=== PATIENT | male | born 1980 | race Caucasian/White ===

== ENCOUNTER 2024-02-04 23:44 | Inpatient (IN) | payer SELFPAY ==
[2024-02-04 23:45] VITALS: BP 137/113; PULSE 82; RESP 18; TEMP 36.8; O2SAT 99
[2024-02-04 23:47] VITALS: BMI 24.9
--- NOTE | 2024-02-04 23:55 | EX.ED.SAOD ---
HPI History of Present Illness Chief Complaint: ETOH Intox Narrative Narrative: 43-year-old male presenting for alcohol. Last drink was just a few hours ago. Patient states he gets up in the morning and drinks all day. He drinks mostly beer but also drinks whiskey. He has been doing this for about 15 years. He is never detoxed before. He does not know if he will withdrawal or not. Patient denies any other medical problems. He states he does not do drugs. PFSH PFSH Allergy/AdvReac Type Severity Reaction Status Date / Time No Known Allergies Allergy Verified 02/04/24 23:48 ROS ROS ED Constitutional Constitutional ED: Denies chills, fever(s) or sweats Eyes Eyes: Denies blurry vision or change in vision ENT ENT ED: Denies ear pain or sore throat Cardiovascular Cardiovascular: Denies chest pain, palpitations or racing heartbeat Respiratory/Chest Respiratory/Chest: Denies cough, dyspnea or sputum Gastrointestinal Gastrointestinal: Denies abdominal pain, constipation, diarrhea, nausea or vomiting Genitourinary Genitourinary ED: Denies dysuria, hematuria or urinary frequency Musculoskeletal Musculoskeletal: Denies arthralgias, myalgias or neck pain Integumentary Denies abscess, Abrasions or rash Neurologic Neurologic: Denies headache(s), paresthesias or weakness Psychiatric Psychiatric: Denies anxiety, depression, suicidal ideation or suicidal thoughts Endocrine Endocrinology: Denies polydipsia or polyuria EXAM Physical Exam Const Vital Signs: 02/04/24 23:45 Temperature 98.3 F Temperature Source Oral Pulse Rate 82 Respiratory Rate 18 Blood Pressure 137/113 H Blood Pressure Mean 121 Pulse Ox 99 Oxygen Delivery Method Room Air Positive well nourished General Appearance ED: NAD; Negative for pallor HEENT Reports moist mucous membranes Eyes PERRL and EOMs intact bilaterally Lymph Lymphatic: no lymphadenopathy noted Resp normal respiratory effort and clear to auscultation bilaterally Auscultation: Negative for rales, rhonchi or wheezes Cardio regular rate and regular rhythm Neuro oriented x3 and CN's II-XII intact bilaterally Sensorium / Orientation: alert Motor Exam: strength 5/5 throughout Psych mental status grossly normal Skin General Skin Exam: Negative for jaundice or pallor MDM MDM MDM Narrative Medical decision making narrative: Patient presenting for EtOH detox. Appropriate screening lab work was obtained. Assess white blood cell count, hemoglobin, platelets. CMP to assess liver for, renal. Alcohol level use assess intoxication. Urine drug screen will be obtained. Patient not currently having any withdrawal symptoms. CBC shows normal white blood cell count of 6.6. Hemoglobin 15.0. Platelets are normal at 240. Renal function and electrolytes within normal limits with exception of a potassium 3.2. AST and ALT moderately elevated at 76 and 87 respectively. EtOH 153. Urine drug screen is pending. Patient mid to the hospitalist in stable condition. Impression: 1. EtOH abuse 2. EtOH detox Lab Data Attestation: I reviewed the patient's lab results. Labs: Laboratory Results - last 24 hr 02/05/24 02/05/24 00:20 00:25 WBC 6.6 RBC 4.54 L Hgb 15.0 Hct 44.7 MCV 98.5 H MCH 33.0 H MCHC 33.6 RDW Std Deviation 47.3 H RDW Coeff of Filippo 13.2 Plt Count 240 MPV 9.2 Immature Gran % (Auto) 0.300 Neut % (Auto) 68.6 Lymph % (Auto) 17.[address] [place] % (Auto) 10.0 Eos % (Auto) 3.2 Baso % (Auto) 0.9 Absolute Neuts (auto) 4.6 Absolute Lymphs (auto) 1.13 Nucleated RBC % 0 Sodium 139 Potassium 3.2 L Chloride 105 Carbon Dioxide 25.0 Anion Gap 9 BUN 7 Creatinine 0.90 Est GFR (MDRD) Af Amer 120 Est GFR (MDRD) Non-Af 99 BUN/Creatinine Ratio 7.8 L Glucose 94 Calcium 8.9 Total Bilirubin 0.60 AST 76 H ALT 87 H Alkaline Phosphatase 52 Total Protein 7.9 Albumin 4.3 Globulin 3.6 Albumin/Globulin Ratio 1.2 Ur Drug Screen Comment Ethyl Alcohol 153.0 Discharge Plan Triage Chief Complaint: ETOH Intox ED Provider: Cyrus Raymundo Dx/Rx/DC Orders Print Language: Occitan
[2024-02-05] VITALS (8 sets, daily range): BP systolic 105–131; BP diastolic 60–91; PULSE 72–88; RESP 12–18; TEMP 36.6–37.1; O2SAT 96–99; BMI 24.8
[2024-02-05 00:36] LABS: Absolute Lymphocyte Count 1.13 X10^3/uL (0.83-4.51); Absolute Neutrophil Count 4.6 X10^3/uL (2.0-7.7); Basophil# 0.06 X10^3/uL; Basophil% 0.9 % (0-1); Eosinophil# 0.21 X10^3/uL; Eosinophils% 3.2 % (0-5); Hematocrit 44.7 % (40-54); Lymphocyte # 1.13 X10^3/ul (0.83-4.51); Mean Corp Hgb Conc 33.6 g/dL (32-36); Mean Corpuscular Volume 98.5 fL (80-94); Mean Platelet Vol. 9.2 fl (6.2-12.0); Monocyte# 0.66 X10^3/uL; NRBC Flagged by Analyzer 0 % (0-5); Neutrophil # 4.55 X10^3/uL (2.7-7.7); Neutrophil % 68.6 % (47-70); Platelet Count 240 K/mm3 (150-450); RBC Distribution Width CV 13.2 % (11.6-14.6); RBC Distribution Width SD 47.3 fl (35.1-43.9); Red Blood Count 4.54 M/mm3 (4.6-6.2); White Blood Count 6.6 K/mm3 (4.4-11.0)
[2024-02-05 00:54] LABS: ALB/GLOB Ratio 1.2 RATIO (0.9-2.4); AST(SGOT) 76 U/L (15-37); Alanine Aminotransfer ALT/SGPT 87 U/L (16-61); Albumin, Serum 4.3 g/dL (3.2-5.0); Alkaline Phosphatase 52 U/L (45-117); Anion Gap 9 (5-15); BUN 7 mg/dL (7-18); BUN/Creat Ratio 7.8 RATIO (10-20); Calcium,Total 8.9 mg/dL (8.5-10.1); Chloride 105 mmol/L (98-107); EST Glomerular Filtration Rate 99 mL/min (>60); Est Glom Filt Rate - Afr Amer 120 mL/min (>60); Globulin 3.6 g/dL (2.2-4.2); Glucose 94 mg/dL (74-106); Potassium 3.2 mmol/L (3.5-5.1); Protein, Total 7.9 g/dL (6.4-8.2); Sodium Level 139 mmol/L (136-145)
--- NOTE | 2024-02-05 00:55 | PCM.HP.STD ---
HPI - General General Date of Admission: 02/05/24 Date of Service: 02/05/24 Chief Complaint: Requesting EtOH detoxification HPI Narrative The patient is a 43 y/o M w/ PMHx: Anxiety and Depression, Former tobacco use remotely, Current Homeless status who presents to the [facility] ED on 02/04/24 with history of ongoing alcohol abuse with last drink 2 hours prior to presentation requesting specifically alcohol detoxification treatment. Patient currently denies any alcohol withdrawal symptoms. He notes that he has been drinking like this since his early 20s. He denies missing any days therefore he is unsure if he gets alcohol withdrawal symptoms quickly. Workup in the ED included T98.3, heart rate 82, BP 137/113, respiratory rate 18, 99% on room air, CBC with WBC 6.6, hemoglobin 15, platelets 240 without marked shift, CMP with potassium 3.2, AST/ALT 76/87 otherwise hepatic profile unremarkable, UDS pending, ethyl alcohol level 153. [facility] Medical History (Updated 02/05/24 @ 01:[address] Eloina Díaz MD) Alcohol abuse Former tobacco use Anxiety and depression Allergy/AdvReac Type Severity Reaction Status Date / Time No Known Allergies Allergy Verified 02/04/24 23:48 Family History (Updated 02/05/24 @ 01:[address] Eloina Díaz MD) Mother Cancer Alcohol abuse Father No problems noted. Surgical History (Updated 02/05/24 @ 01:[address] Eloina Díaz MD) No history of previous surgery Social History (Updated 02/05/24 @ 01:[address] Eloina Díaz MD) household members: none housing: homeless Smoking Status: Former smoker how long ago did patient quit smoking: Quit 10+ yrs prior, smoked 1/2 ppd since early 20s until quit. alcohol intake: current alcohol intake frequency: 3 or more drinks per day details: 6-8 Tall boys daily, occasionally whiskey also. substance use type: does not use ROS ROS Narrative Admission Review of Systems: CONSTITUTIONAL: No weight loss, fever, chills, + weakness or fatigue. HEENT: Eyes: No visual loss, blurred vision, double vision or yellow sclerae. Ears, Nose, Throat: No hearing loss, sneezing, congestion, runny nose or sore throat. SKIN: No rash or itching, lesions, wounds except + notable dermatitis especially the facial region. CARDIOVASCULAR: No chest pain, chest pressure or chest discomfort, palpitations, edema, orthopnea, syncopal events. RESPIRATORY: No shortness of breath, cough or sputum, wheezing, hemoptysis. GASTROINTESTINAL: No anorexia, nausea, vomiting or diarrhea, abdominal pain, melena, BRBPR. GENITOURINARY: No dysuria, frequency, urgency or retention. NEUROLOGICAL: No headache, dizziness, syncope, paralysis, ataxia, numbness or tingling in the extremities, focal weakness, change in bowel or bladder control, seizure. MUSCULOSKELETAL:+ muscle, back pain, joint pain or stiffness. HEMATOLOGIC: No anemia, bleeding or bruising. LYMPHATICS: No enlarged nodes. No history of splenectomy. PSYCHIATRIC: + History of anxiety and depression. ENDOCRINOLOGIC: No reports of sweating, cold or heat intolerance. No polyuria or polydipsia. ALLERGIES: + Appearance of possibly eczema. Vital Signs Vital Signs Vital Signs: 02/04/24 23:45 Temperature 98.3 F Temperature Source Oral Pulse Rate 82 Respiratory Rate 18 Blood Pressure 137/113 H Blood Pressure Mean 121 Pulse Ox 99 Oxygen Delivery Method Room Air Physical Exam Narrative Physical Examination: General: Awake, alert, oriented x 3 and cooperative, seated upright in the ED bed, fatigued, no acute distress, denies any alcohol withdrawal symptoms. Skin: Normal color, normal turgor, no icterus, no cyanosis except notable appearance of eczematous rash especially on the face. HEENT: AT/NC, EOMI, PERRLA, mildly dry MM, no carotid bruits or JVD noted. Lungs: Mildly diminished, greater bases, proper effort, no rales, ronchi or wheezing. Heart: Regular rate and rhythm; no gallop, rub audible. Abdomen: Soft, NTTP, ND, normal BS, no markedly appreciated HSM. Extremities: No cyanosis, clubbing, or edema. Neurological: Patient awake, alert, oriented as noted, cognitive function intact; pupils equally reactive to light and accommodation, cranial nerves grossly normal, moving all 4 extremities, no focal deficits, strength preserved, no evidence of any withdrawal. Psychiatric: Affect appears fatigued otherwise normal, no acute evidence of depressive or anxiety feelings but does admit to history of untreated. Results Lab / Micro Data 02/05/24 00:20 02/05/24 00:20 Labs: Laboratory Results - last 24 hr 02/05/24 00:20: WBC 6.6, RBC 4.54 L, Hgb 15.0, Hct 44.7, MCV 98.5 H, MCH 33.0 H, MCHC 33.6, RDW Std Deviation 47.3 H, RDW Coeff of Filippo 13.2, Plt Count 240, MPV 9.2, Immature Gran % (Auto) 0.300, Neut % (Auto) 68.6, Lymph % (Auto) 17.0 L, [place] % (Auto) 10.0, Eos % (Auto) 3.2, Baso % (Auto) 0.9, Absolute Neuts (auto) 4.6, Absolute Lymphs (auto) 1.13, Nucleated RBC % 0, Sodium 139, Potassium 3.2 L, Chloride 105, Carbon Dioxide 25.0, Anion Gap 9, BUN 7, Creatinine 0.90, Est GFR (MDRD) Af Amer 120, Est GFR (MDRD) Non-Af 99, BUN/Creatinine Ratio 7.8 L, Glucose 94, Calcium 8.9, Total Bilirubin 0.60, AST 76 H, ALT 87 H, Alkaline Phosphatase 52, Total Protein 7.9, Albumin 4.3, Globulin 3.6, Albumin/Globulin Ratio 1.2, Ethyl Alcohol 153.0 02/05/24 00:25: Ur Drug Screen Comment Assessment & Plan Assessment/Plan (1) Admitted to alcohol detoxification center: PLAN: Plan The patient is a 43 y/o M w/ PMHx: Anxiety and Depression, Former tobacco use remotely, Current Homeless status who presents to the [facility] ED on 02/04/24 with history of ongoing alcohol abuse with last drink 2 hours prior to presentation requesting specifically alcohol detoxification treatment. #1. EtOH Abuse with impending acute withdrawal with request for acute detoxification: Will admit to [facility], routine labs obtained in the ED upon presentation and pending upon evaluation. Given interest in sobriety, will initiate and continue on protocol with taper course of Phenobarbital, as needed gabapentin, Catapres, Bentyl, Vistaril, IV fluids, IV antiemetics, Tylenol as needed for pain. Will consult Case management for assistance for transition to next level of rehabilitation care. Mag, phos pending. Maintain on CIWA protocol concurrently. #2. Elevated BP without hypertensive diagnosis: Presentation BP 137/113, elevated above goal, potentially related with #1, continue to monitor. #3. Hypokalemia: Admission K+ 3.2, magnesium level request, supplementation given, repeat level in AM. #4. Transaminitis, potentially chronic alcohol related: Admission CMP with AST/ALT 76/87. #5. Social disparity, homelessness status: Significantly complicates presentation, notably impacts patient's risk for nonadherence to treatment and subsequent increased risk for complications and readmission, case management/social work will be consulted as well as 180. #6. Anxiety and Depression: Patient admits to a history of depression remotely but is not had any treatment, will benefit from consideration of counseling and potentially medication is likely contributing to #1. #7. Former tobacco use: Encourage continued tobacco cessation. #8. DVT prophylaxis: Low risk for type admission, encourage ambulation. Charges/Coding Visit Charges Inpatient E&M: 91738 Init Hosp L2
[2024-02-05 01:25] LABS: Amphetamine Urine VISTA NEGATIVE (<1000 ng/mL); Barbiturate Urine VISTA NEGATIVE (< 200 ng/mL); Benzodiazepine Urine VISTA NEGATIVE (< 200 ng/mL); Cocaine Urine VISTA NEGATIVE (< 300 ng/mL); Ecstacy Urine VISTA NEGATIVE (< 500 ng/mL); Methadone Urine VISTA NEGATIVE (< 300 ng/mL); PCP Urine VISTA NEGATIVE (< 25 ng/mL); THC Urine VISTA NEGATIVE (< 50 ng/mL); Vista UDS pH Range 5
[2024-02-05 01:44] LABS: Magnesium 2.3 mg/dL (1.6-2.6); Phosphorus 3.2 mg/dL (2.5-4.9)
[2024-02-05] MEDS: Lactated Ringers 1,000 ML 125 ML IV (03:40)
[2024-02-05] MEDS: Phenobarbital 32.4 MG Tablet 97.2 MG PO ×6 (03:40→23:14)
[2024-02-05] MEDS: Folic Acid 1 MG Tablet PO (07:48)
[2024-02-05] MEDS: Thiamine Hydrochloride 100 MG Tablet PO (07:48)
[2024-02-05] MEDS: Ensure Plus High Protein 120 ML LIQUID PO (07:48)
--- NOTE | 2024-02-05 13:03 | ADDICTION ---
Met with Pt to complete RAMP assessments. Pt actively participated and was agreeable to tx recommendations. Pt reports that he would like to do inpatient treatment. TW will set up admission for Wednesday due to it being the weekend and [facility] admissions team will not be there until Wednesday.
--- NOTE | 2024-02-05 13:46 | CASEMGMT ---
SW met with patient. Introduced self and role at [facility]. Patient just moved to [place] and does not have a place to live. SW provided patient with resources. Patient also spoke with retina subspecialist and is planning on going into residential treatment. NAKIA will also follow up with [employer] c s s representative to assist patient with Medicaid application. Swapna Olivera LICENSED SALES ASSISTANT ASHLEY
[2024-02-05] MEDS: Ondansetron 8 MG Tablet PO (15:08)
[2024-02-06 02:55] VITALS: BP 111/81; PULSE 95; RESP 16; TEMP 36.6; O2SAT 97
[2024-02-06] MEDS: Phenobarbital 32.4 MG Tablet 97.2 MG PO ×2 (02:59→06:38)
[2024-02-06 08:00] VITALS: BP 125/80; PULSE 80; RESP 18; TEMP 36.6; O2SAT 99
--- NOTE | 2024-02-06 08:23 | NURSING ---
Patient asking to leave AMA, form signed, pt belongings opened. Dr. Kolb aware.
--- NOTE | 2024-02-06 08:54 | PCM.HOSP.N ---
Hospitalist Note I was notified this morning the patient requested to leave AMA, he was not seen by myself.
== END 2024-02-06 08:28 | disposition left against medical advice (07) | DRG 894 ==
LOC: ED 02-05 01:24 → MS3 02-05 01:48
PROVIDERS: Admitting Provider Family Medicine; Emergency Provider Student in an Organized Health Care Education/Training Program; Visit Provider Internal Medicine
DX: F10.139 Alcohol abuse with withdrawal, unspecified (principal); Z59.00 Homelessness unspecified; E87.6 Hypokalemia; Z87.891 Personal history of nicotine dependence; Y90.6 Blood alcohol level of 120-199 mg/100 ml; Z53.29 Procedure and treatment not carried out because of patient's decision for other reasons
CPT/HCPCS: 80053; 80307; 82077; 83735; 84100; 85025; 97802; 99283; J7120